=== PATIENT | female | born 1990 | race African-American/Black ===

== ENCOUNTER 2018-07-08 09:06 | Emergency (ER) | payer OTHER ==
[~2018-07-08] VITALS: Ht 167.6 cm; Wt 61.6 kg
[2018-07-08] MEDS ORDERED: ZITHTAB PO (10:30)
[2018-07-08 10:35] VITALS: BP 110/66
== END 2018-07-08 10:36 | disposition home or self-care (01) ==
LOC: M ED 09:06
DX: H66.93 Otitis media, unspecified, bilateral (principal); Z88.0 Allergy status to penicillin

== ENCOUNTER 2019-04-06 20:53 | Emergency (ER) | payer OTHER ==
[~2019-04-06] VITALS: Ht 170.2 cm; Wt 61.4 kg
[~2019-04-06 20:53] MED LIST: ZITHTAB PO
[2019-04-06] MEDS ORDERED: KETOROLAC 30 MG/ML VIAL (J1885) IV ONE (21:15)
[2019-04-06] MEDS ORDERED: NS 1,000 ML IV ONE (21:15)
[2019-04-06] MEDS ORDERED: ONDANSETRON 4MG/2ML VIAL (J2405) IV ONE (21:15)
[2019-04-06 21:54] LABS: BASO % 0.1 % (0.0-1.0); EOS % 0.2 % (0.0-3.0); HEMATOCRIT 40.8 % (36.0-47.0); HEMOGLOBIN 13.5 g/dl (12.0-15.5); LYMPH # 0.5 10^3/uL (1.5-5.0); LYMPH % 4.3 % (24.0-44.0); MEAN CORPUSCULAR HEMOGLOBIN 30.4 pg (27.0-33.0); MEAN CORPUSCULAR HGB CONC 33.1 g/dl (32.0-36.5); MEAN CORPUSCULAR VOLUME 91.9 fl (80.0-96.0); MONO # 0.6 10^3/uL (0.0-0.8); NEUTROPHILS # 10.4 10^3/uL (1.5-8.5); PLATELET COUNT, AUTOMATED 224 10^3/uL (150-450); RED BLOOD COUNT 4.44 10^6/uL (4.00-5.40); WHITE BLOOD COUNT 11.6 10^3/uL (4.0-10.0)
[2019-04-06 22:17] LABS: ALBUMIN 3.9 GM/DL (3.2-5.2); BILIRUBIN,DIRECT 0.1 MG/DL (0.0-0.2); BILIRUBIN,TOTAL 0.4 MG/DL (0.2-1.0); TOTAL PROTEIN 7.9 GM/DL (6.4-8.2)
[2019-04-06] MEDS ORDERED: ONDA4TAB6 PO (23:28)
[2019-04-06 23:30] VITALS: BP 108/53
== END 2019-04-06 23:47 | disposition home or self-care (01) ==
LOC: M ED 20:53
DX: K52.9 Noninfective gastroenteritis and colitis, unspecified (principal); Z88.0 Allergy status to penicillin
CPT/HCPCS: 80047; 80076; 83690; 84702; 85025; 87040; 93041; 96374; 96375; 99284; J1885; J2405